=== PATIENT | female | born 1950 | race Caucasian/White ===

== ENCOUNTER → 2016-12-08 | Outpatient (CLI) | payer OTHER | LOC: FIMAGING 13:23 | PROVIDERS: ATTEND Internal Medicine Hematology & Oncology | DX: Z12.31 Encounter for screening mammogram for malignant neoplasm of breast (principal) | CPT/HCPCS: G0202 ==

== ENCOUNTER → 2017-08-03 | Outpatient (CLI) | payer OTHER | LOC: FIMAGING 08:20 | PROVIDERS: ATTEND Internal Medicine Hematology & Oncology | DX: N13.30 Unspecified hydronephrosis (principal); R93.5 Abnormal findings on diagnostic imaging of other abdominal regions, including retroperitoneum; C56.1 Malignant neoplasm of right ovary; C56.2 Malignant neoplasm of left ovary ==

== ENCOUNTER 2017-08-11 13:15 | Day surgery (SDC) | payer OTHER ==
[2017-08-11] MEDS ORDERED: NALOXONE HCL 0.4 MG/ML INJ IVP PRN (13:47)
[2017-08-11] MEDS ORDERED: MIDAZOLAM 2 MG/2 ML VIAL IVP PRN (13:47)
[2017-08-11] MEDS ORDERED: fentaNYL 100 MCG/2 ML INJ IVP PRN (13:47)
[2017-08-11] MEDS ORDERED: FLUMAZENIL 0.5 MG/5 ML MDV IVP PRN (13:47)
[2017-08-11] MEDS ORDERED: cefTRIAXone 1 GM in STERILE WATER INJ 10 ML IV ONE (13:47)
[2017-08-11] MEDS ORDERED: ALTEPLASE 2 MG VIAL IVP PRN (13:47)
[2017-08-11] MEDS ORDERED: GLUCAGON HCL 1 MG VIAL IVP PRN (13:47)
[2017-08-11] MEDS ORDERED: MEPERIDINE 25 MG/ML SYR IVP PRN (13:47)
[2017-08-11] MEDS ORDERED: PROTAMINE SULFATE 50 MG/5 ML VIAL IVP PRN (13:47)
[2017-08-11] MEDS ORDERED: HEPARIN 10,000 UNIT/10 ML MDV (1,000 UNIT/ML) IVP PRN (13:47)
[2017-08-11] MEDS ORDERED: NS 1,000 ML IV SCH (14:00)
[2017-08-11 14:07] VITALS: PULSE 60
--- NOTE | 2017-08-11 14:27 | PDPROPOC ---
Sedation Plan of Care ASA Classification: ASA 2 Planned drugs: fentanyl, midazolam Mallampati Score: Class 2 Mallampati Reference Image:
--- NOTE | 2017-08-11 14:29 | PDGENHP ---
History & Physical Chief Complaint: hydronephrosis History of Present Illness: distal obstruction of left ureter, unable to stent cystoscopically, severe hydro Relevant Physical Exam: nt/nd abdomen Cardiorespiratory Assessment: rrr, nl wob
[2017-08-11] MEDS ORDERED: fentaNYL 100 MCG/2 ML INJ ONE ×2 (15:51→16:06)
[2017-08-11] MEDS ORDERED: MIDAZOLAM 2 MG/2 ML VIAL ONE ×2 (15:51→16:06)
--- NOTE | 2017-08-11 16:27 | PDRADPN ---
Radiology Procedure Note Date of Procedure: 08/11/17 Radiologist: Grey Friend Anesthesia: IV Sedation Pre-op Diagnosis: obstructive left hydronephrosis Post-op Diagnosis: mid ureter obstruction, complete Indication: obstructed whit system Procedure: left PCN with placement of internal stent and pigtail nephrostomy Finding(s): severe hydro. obstruction at mid ureter. obstruction crossed with glidewire. internal 22cm x 8F NU stent placed. access maintained with 8F pigtail nephrostomy. Inf/Abcess present in the surg proc area at time of surgery?: No EBL: Minimal Complications: none Drains: Nephrostomy (8F)
[2017-08-11] MEDS ORDERED: oxyCODONE IR 5 MG TAB PO PRN (16:30)
[2017-08-11] MEDS ORDERED: ONDANSETRON 4 MG/2 ML VIAL IVP PRN (16:30)
[2017-08-11] MEDS ORDERED: ACETAMINOPHEN 325 MG TAB PO PRN (16:30)
[2017-08-11 17:59] VITALS: BP 153/77; RESP 14; TEMP 97.9
[2017-08-11 18:21] VITALS: O2SAT 99
== END 2017-08-11 18:20 | disposition home or self-care (01) ==
LOC: FIMAGING 13:15
PROVIDERS: ATTEND Specialist
DX: N13.0 Hydronephrosis with ureteropelvic junction obstruction (principal); C56.1 Malignant neoplasm of right ovary
CPT/HCPCS: 50695; 99152; 99153; C1729; C1769; C1894; J0696; J2250; J2310; J3010

== ENCOUNTER → 2017-08-15 | Day surgery (SDC) | payer OTHER ==
[~2017-08-15] MED LIST: IOPAMIDOL (ISOVUE-300) 100 ML BTL ONE
== END | disposition home or self-care (01) ==
LOC: FIMAGING 15:35
PROVIDERS: ATTEND Specialist
PROC: 0TP5X0Z Removal of Drainage Device from Kidney, External Approach (ICD-10-PCS; principal; 2017-08-15)
DX: Z46.6 Encounter for fitting and adjustment of urinary device (principal); N13.5 Crossing vessel and stricture of ureter without hydronephrosis; K59.00 Constipation, unspecified
CPT/HCPCS: Q9967

== ENCOUNTER 2017-08-16 22:05 | Inpatient (IN) | payer OTHER ==
--- NOTE | 2017-08-16 22:22 | EDPHY ---
H & P Stated Complaint: CONSTIPATED TOOK GOLYITLY NOW POOPING SELF Time Seen by Provider: 08/16/17 22:15 HPI/ROS: HPI CHIEF COMPLAINT: Abdominal pain, constipation HISTORY OF PRESENT ILLNESS: This patient is a 67-year-old female, she has a history of ovarian cancer followed by Dr. Gage. She has not had a bowel movement in 9 days. She decided to take a rather large amount of GoLYTELY today and now has abdominal pain diarrhea and abdominal spasms. She complained of severe abdominal cramping throughout her entire abdomen. She did have 1 episode of nausea with vomiting. She denies any chest pain or shortness of breath. Denies fever. Past Medical History: Ovarian cancer, constipation, hypertension Past Surgical History: Ureteral stents, Social History: Lives locally, daughter at bedside. Family History: Noncontributory ROS REVIEW OF SYSTEMS: A comprehensive 10 point review of systems is otherwise negative aside from elements mentioned in the history of present illness. Exam Constitutional appears uncomfortable, triage nursing summary reviewed, vital signs reviewed, awake/alert. Eyes normal conjunctivae and sclera, EOMI, PERRLA. HENT normal inspection, atraumatic, moist mucus membranes, no epistaxis, neck supple/ no meningismus, no raccoon eyes. Respiratory clear to auscultation bilaterally, normal breath sounds, no respiratory distress, no wheezing. Cardiovascular rate normal, regular rhythm, no murmur, no edema, distal pulses normal. Gastrointestinal mild tender palpation diffusely, no rebound, no guarding, normal bowel sounds, no distension, no pulsatile mass. Genitourinary no CVA tenderness. Musculoskeletal no midline vertebral tenderness, full range of motion, no calf swelling, no tenderness of extremities, no meningismus, good pulses, neurovascularly intact. Skin pink, warm, & dry, no rash, skin atraumatic. Neurologic awake, alert and oriented x 3, AAOx3, moves all 4 extremities equally, motor intact, sensory intact, CN II-XII intact, normal cerebellar, normal vision, normal speech. Psychiatric normal mood/affect. Heme/Lymph/Immune no lymphadenopathy. Differential diagnosis includes but is not limited to and in no particular order : Bowel obstruction, appendicitis, gallbladder disease, diverticulitis, colitis , enteritis, perforated viscus, gastritis, GERD, esophagitis, urinary tract infection, pyelonephritis, kidney stones Medical Decision Making: Plan for this patient IV establishment IV fluid bolus , IV fentanyl 50 mcg for pain control, IV Zofran 4 mg for nausea, basic blood work in KUB and re-evaluate. Re-evaluation: KUB reviewed shows large amount of stool. Ureteral stent. Place. Multiple air -fluid levels visualized. Given the multiple air-fluid levels will proceed with CT scan abdomen pelvis without contrast. Given air-fluid levels seen on x-ray will proceed with CT scan. CT scan without contrast given her creatinine is 1.9. 2339: CT scan abdomen pelvis without contrast called to me by Dr. hardy, no free air, no free fluid, no evidence of obstruction. There is a large pelvic mass. Adjacent to this is sigmoid colon and what is unable to be determined if the mass is confluent with the sigmoid colon. Additionally possible sigmoid diverticulitis versus colitis. Please see full dictation report. 2358: Re-examination at this time this patient is resting comfortably. Abdomen is soft at this time. She is not vomiting. Pain well controlled with IV Dilaudid. Blood work has been reviewed. CT scan has been reviewed. I have reviewed her CT scan findings with her I have offered her hospital admission for pain control and IV hydration she would prefer this. Source: Patient - Personal History Current Tetanus/Diphtheria Vaccine: Unsure Current Tetanus Diphtheria and Acellular Pertussis (TDAP): Unsure - Medical/Surgical History Hx Asthma: No Hx Chronic Respiratory Disease: No Hx Diabetes: No Hx Cardiac Disease: No Hx Renal Disease: No Hx Cirrhosis: No Hx Alcoholism: No Hx HIV/AIDS: No Hx Splenectomy or Spleen Trauma: No Other PMH: ovarian cancer, Chemo, HTN, KIDNEY STENTS WITH KIDNEY PROBLEMS - Social History Smoking Status: Former smoker Constitutional: Initial Vital Signs Temperature (C) 36.8 C 08/16/17 22:10 Heart Rate 97 08/16/17 22:10 Respiratory Rate 20 08/16/17 22:10 Blood Pressure 170/120 H 08/16/17 22:10 O2 Sat (%) 98 08/16/17 22:10 O2 Delivery Mode Room Air O2 (L/minute) 1 Allergies/Adverse Reactions: gabapentin Allergy (Intermediate, Verified 08/16/17 22:09) dizziness Home Medications: Medication Instructions Recorded Carisoprodol [Soma (*)] 350 mg PO BID PRN 12/05/14 LORazepam [Ativan (*)] 1 mg PO TID PRN 12/05/14 traZODone [traZODONE 100MG (*)] 100 mg PO HS 12/05/14 amLODIPine BESYLATE [Norvasc 10 mg 10 mg PO DAILY #60 tab 12/08/14 (*)] FLUoxetine [Prozac 20 MG (*)] 40 mg PO DAILY 10/30/15 Pantoprazole Sodium [Protonix 40mg 40 mg PO DAILY 10/30/15 (*)] Propranolol Sr [Inderal LA 60mg 60 mg PO HS 10/30/15 (*)] Levothyroxine [Synthroid 50 mcg 50 mcg PO DAILY06 #30 tab 11/06/15 (*)] clonIDINE [Catapres (*)] 0.1 mg PO BID #60 tab 11/06/15 HYDROcodone/APAP 10/325 [Arona 1 - 2 tab PO Q4-6PRN PRN 08/17/17 10/325 (*)] Medical Decision Making - Data Points Laboratory Results: Laboratory Results 08/17/17 04:15 08/17/17 04:15 Medications Given: Amlodipine Besylate (Norvasc) 10 mg PO DAILY [facility] Stop: 02/13/18 10:59 Last Admin: 08/18/17 08:11 Dose: 10 mg Carisoprodol (Soma) 350 mg PO BID PRN PRN Reason: Spasms Stop: 02/13/18 10:48 Last Admin: 08/18/17 13:50 Dose: 350 mg Clonidine (Catapres) 0.1 mg PO BID [facility] Stop: 02/13/18 10:59 Last Admin: 08/18/17 08:12 Dose: 0.1 mg Fentanyl (Duragesic) 12 mcg TD Q72H [facility] Stop: 08/27/17 14:29 Last Admin: 08/17/17 14:42 Dose: 12 mcg Fluoxetine HCl (Prozac) 40 mg PO DAILY [facility] Stop: 02/14/18 08:59 Last Admin: 08/18/17 08:11 Dose: 40 mg Gabapentin (Neurontin) 100 mg PO HS [facility] Stop: 02/14/18 20:59 Last Admin: 08/18/17 21:30 Dose: 100 mg Heparin Sodium (Porcine) (Heparin Sc Injection) 5,000 unit SC 0600,1400,2200 [facility] Stop: 02/13/18 13:59 Last Admin: 08/18/17 15:36 Dose: 5,000 unit Hydromorphone HCl (Dilaudid) 2 mg PO Q3H PRN PRN Reason: Pain, Severe Able to Take PO Stop: 08/28/17 11:28 Last Admin: 08/18/17 18:39 Dose: 2 mg Hydromorphone HCl (Dilaudid) 1 mg IVP Q4HRS PRN PRN Reason: Pain, Severe Able to Take PO Stop: 08/27/17 23:37 Last Admin: 08/18/17 19:36 Dose: 1 mg Sodium Chloride (Ns) 1,000 mls @ 100 mls/hr IV CONT [facility] Stop: 02/13/18 00:14 Last Admin: 08/18/17 03:54 Dose: 1,000 mls Levothyroxine Sodium (Synthroid) 50 mcg PO DAILY06 [facility] Stop: 02/13/18 10:50 Last Admin: 08/18/17 05:22 Dose: 50 mcg Lorazepam (Ativan) 0.5 mg PO Q6H PRN PRN Reason: Anxiety Stop: 02/13/18 10:48 Last Admin: 08/18/17 18:12 Dose: 0.5 mg Pantoprazole Sodium (Protonix) 40 mg PO DAILY [facility] Stop: 02/14/18 08:59 Last Admin: 08/18/17 08:12 Dose: 40 mg Polyethylene Glycol (Miralax) 17 gm PO DAILY [facility] Stop: 02/13/18 14:14 Last Admin: 08/18/17 08:12 Dose: 17 gm Propranolol HCl (Inderal La) 60 mg PO HS [facility] Stop: 02/13/18 20:59 Last Admin: 08/18/17 21:28 Dose: 60 mg Trazodone HCl (Trazodone) 100 mg PO HS [facility] Stop: 02/13/18 20:59 Last Admin: 08/17/17 22:18 Dose: Not Given Discontinued Medications Hydrocodone Bitart/Acetaminophen ([place]rona 5/325) 1 - 2 tab PO Q4HRS PRN PRN Reason: Pain, Moderate Able to Take PO Stop: 08/27/17 00:05 Last Admin: 08/17/17 23:11 Dose: 2 tab Clonidine (Catapres) 0.1 mg PO BID [facility] Stop: 02/13/18 02:59 Last Admin: 08/17/17 17:30 Dose: Not Given Fentanyl (Sublimaze) 50 mcg IVP EDNOW ONE Stop: 08/16/17 22:32 Last Admin: 08/16/17 22:34 Dose: 50 mcg Gabapentin (Neurontin) 100 mg PO TID [facility] Stop: 02/13/18 15:59 Last Admin: 08/18/17 08:12 Dose: Not Given Hydromorphone HCl (Dilaudid) 1 mg IVP EDNOW ONE Stop: 08/16/17 22:54 Last Admin: 08/17/17 00:14 Dose: 1 mg Hydromorphone HCl (Dilaudid) 0.5 - 1 mg IVP Q2HRS PRN PRN Reason: Pain, Severe Unable to Take PO Stop: 08/27/17 00:05 Last Admin: 08/17/17 19:48 Dose: 1 mg Hydromorphone HCl (Dilaudid) 1 - 2 mg IVP Q4HRS PRN PRN Reason: Pain, Severe Able to Take PO Stop: 08/27/17 23:37 Last Admin: 08/18/17 16:02 Dose: 2 mg Hydromorphone HCl (Dilaudid) 2 - 4 mg PO Q4HRS PRN PRN Reason: Pain, Severe Able to Take PO Stop: 08/28/17 00:09 Last Admin: 08/18/17 05:22 Dose: 4 mg Hydromorphone HCl (Dilaudid) 2 mg PO Q4HRS PRN PRN Reason: Pain, Severe Able to Take PO Stop: 08/28/17 00:09 Last Admin: 08/18/17 15:36 Dose: 2 mg Sodium Chloride (Ns) 1,000 mls @ 0 mls/hr IV EDNOW ONE; Wide Open PRN Reason: Protocol Stop: 08/16/17 22:32 Last Admin: 08/16/17 22:35 Dose: 1,000 mls Lorazepam (Ativan Injection) 0.5 - 1 mg IVP Q6HRS PRN PRN Reason: Anxiety, Unable to Take PO Stop: 02/13/18 00:05 Last Admin: 08/17/17 21:27 Dose: 1 mg Lorazepam (Ativan) 1 mg PO TID PRN PRN Reason: Anxiety Stop: 02/13/18 10:48 Last Admin: 08/18/17 13:43 Dose: 1 mg Ondansetron HCl (Zofran) 4 mg IVP EDNOW ONE Stop: 08/16/17 22:32 Last Admin: 08/16/17 22:37 Dose: 4 mg Propranolol HCl (Inderal) 60 mg PO HS [facility] Stop: 02/13/18 02:59 Last Admin: 08/17/17 03:00 Dose: 60 mg Departure - Departure Disposition: [facility] Inpatient Acute Clinical Impression: Abdominal pain Qualifiers: Abdominal location: generalized Qualified Code(s): R10.84 - Generalized abdominal pain Condition: Fair
[2017-08-16] MEDS ORDERED: ONDANSETRON 4 MG/2 ML VIAL IVP ONE (22:31)
[2017-08-16] MEDS ORDERED: fentaNYL 100 MCG/2 ML INJ IVP ONE (22:31)
[2017-08-16] MEDS ORDERED: NS 1,000 ML IV ONE (22:31)
[2017-08-16] MEDS ORDERED: fentaNYL 100 MCG/2 ML INJ ONE (22:32)
[2017-08-16 22:37] LABS: PLATELET COUNT 344 10^3/uL (150-400)
[2017-08-16] MEDS: HYDROmorphONE/DILAUDID 2 MG/ML INJ IVP ONE (22:57)
[2017-08-17] MEDS ORDERED: PROMETHAZINE HCL 25 MG/ML INJ IVP PRN (00:06)
[2017-08-17] MEDS ORDERED: ACETAMINOPHEN 325 MG TAB PO PRN (00:06)
[2017-08-17] MEDS ORDERED: ONDANSETRON 4 MG/2 ML VIAL IVP PRN (00:06)
[2017-08-17] MEDS ORDERED: HYDROmorphONE/DILAUDID 2 MG/ML INJ ONE (00:12)
[2017-08-17] MEDS: HYDROmorphONE/DILAUDID 2 MG/ML INJ IVP ONE (00:14)
[2017-08-17] MEDS: LORazepam 2 MG/ML INJ IVP PRN ×4 (00:26→21:27)
[2017-08-17] MEDS: HYDROCODONE/APAP 5/325 TAB PO PRN ×4 (01:44→23:11)
[2017-08-17] MEDS: NS 1,000 ML IV SCH (01:45)
--- NOTE | 2017-08-17 02:43 | PDGENHP ---
History and Physical - Chief Complaint Abdominal pain - History of Present Illness Source-patient able to provide history is a good historian. Her family is at bedside supplements details of history as well. EMR was reviewed and case discussed with ED provider. HPI - this is a pleasant 67-year-old unfortunate lady with the metastatic ovarian cancer who presents to the emergency department today with complaints of diffuse abdominal pain. Patient with a 9 day history of opiate induced constipation. She has been increasing her use of opiates due to her increasing abdominopelvic pain. Patient was instructed to take a bottle of GoLYTELY and reports that she drank large a quantity over a short period time. Patient subsequently developed increasing abdominal distention, bloating, cramping pain despite several bowel movements that have progressed to diarrhea. Patient denies any melena, hematochezia. Patient reports her abdominal pain is severe and diffuse, cramping quality. She also endorses 1 episode of nausea vomiting without any hematemesis. Patient denies any fevers, chills, chest pain, shortness of breath. Patient received initially a dose of fentanyl in the emergency department without any significant relief. She did receive a dose of Dilaudid which helped somewhat with her symptoms. Patient has also been complaining of increasing anxiety due to increasing pain. Patient's primary oncologist is Dr. Gage. Patient is not currently undergoing chemotherapy and unclear if patient had previously had discussions regarding transition to hospice based care. At this time patient desires to remain a full code. History Information - Allergies/Home Medication List Allergies/Adverse Reactions: gabapentin Allergy (Intermediate, Verified 08/16/17 22:09) dizziness Home Medications: Carisoprodol [Soma (*)] 350 mg PO BID PRN 12/05/14 [Last Taken 08/10/17] LORazepam [Ativan (*)] 1 mg PO TID PRN 12/05/14 [Last Taken 08/10/17] traZODone [traZODONE 100MG (*)] 100 mg PO HS 12/05/14 [Last Taken 08/10/17] FLUoxetine [Prozac 20 MG (*)] 40 mg PO BID 10/30/15 [Last Taken 08/10/17] Herbals/Supplements -Info Only 1 each PO DAILY 10/30/15 [Last Taken 08/10/17] Pantoprazole Sodium [Protonix 40mg (*)] 40 mg PO DAILY 10/30/15 [Last Taken ] Propranolol Sr [Inderal LA 60mg (*)] 60 mg PO HS 10/30/15 [Last Taken 08/10/17] I have personally reviewed and updated: family history, medical history, social history, surgical history Past Medical History: Ovarian cancer, chronic pain, depression, anxiety, constipation, HTN, hypothyroidism, insomnia - Surgical History Additional surgical history: Bilateral ureteral stents, appy, port placement, partial hysterectomy, bladder sling - Family History Additional family history: Father with history of CHF, mother with history of lupus. Brother with history of trigeminal neuralgia. Daughters healthy. - Social History Smoking Status: Former smoker Tobacco Use: Cigarettes Alcohol Use: None Drug Use: Marijuana (CBD oil) Review of Systems Review of Systems: ROS: 10pt was reviewed & negative except for what was stated in HPI & below Gastrointestinal: Reports: vomitting, abdominal pain, abdominal distention ( Improved after BM), constipation, diarrhea (Status post GoLYTELY), nausea. Denies: black stools Genitourinary: Denies: dysuria, hematuria Muscolosketal: Reports: other (Abdominal pain as above) Skin: Reports: no symptoms, change in color, lesions (Multiple lesions to upper lower extremities related to patient's cancer) Physical Exam Physical Exam: Selected Entries 08/16/17 22:10 Blood Pressure Automatic Method Heart Rate 97 Respiratory 20 Rate O2 Sat (%) 98 Temperature (C) 36.8 C Blood Pressure 170/120 H Mean Arterial 136 H Pressure (MAP) O2 Delivery Room Air Mode Temperature Oral Source Temp Pulse Resp BP Pulse Ox 37.1 C 75 12 168/102 H 99 08/17/17 01:34 08/17/17 01:34 08/17/17 01:34 08/17/17 01:34 08/17/17 01:34 O2 (L/minute) 1 Constitutional: chronically ill appearing, uncomfortable, other (Patient in moderate distress secondary to complaints of pain. She does writhe around occasionally in the bed. Patient's mood is slightly labile between normal and depressed affects.) Eyes: PERRL (Decreased reactivity light bilaterally but symmetric.), anicteric sclera, EOMI, scleral injection (Minimal injection. Patient is tearful.) Ears, Nose, Mouth, Throat: no oral mucosal ulcers, dry mucous membranes, No poor dentition Cardiovascular: regular rate and rhythym, no murmur, rub, or gallop, tachycardia , edema (Trace bilateral lower extremity) Peripheral Pulses: 1+: dorsalis-pedis (R), dorsalis-pedis (L) Respiratory: no respiratory distress, no rales or rhonchi, clear to auscultation , No reduced air movement Gastrointestinal: tenderness (Diffuse abdominal tenderness to palpation.), distension (Mildly distended but soft), other (Bowel sounds present.), No ascites, No key's sign, No guarding, No rebound Genitourinary: no bladder tenderness, gentile in urethra Skin: warm, normal color, other (Patient with scabbed lesions to her upper and lower extremities. Right elbow with a 3 cm scabbed lesion with some minimal surrounding erythema but no induration.) Musculoskeletal: full muscle strength, No pain with ROM Neurologic: AAOx3, CN II-XII Intact (Grossly normal.), No weakness, No facial droop Psychiatric: not encephalopathic, thought process linear, anxious, depressed ( Intermittently tearful), No poor insight, No poor judgement, No poor memory Lab Data & Imaging Review 08/16/17 22:30 08/16/17 22:30 WBC 12.56 10^3/uL (3.80-9.50) H 08/16/17 22:30 RBC 3.10 10^6/uL (4.18-5.33) L 08/16/17 22:30 Hgb 9.9 g/dL (12.6-16.3) L 08/16/17 22:30 Hct 30.1 % (38.0-47.0) L 08/16/17 22:30 MCV 97.1 fL (81.5-99.8) 08/16/17 22:30 MCH 31.9 pg (27.9-34.1) 08/16/17 22:30 MCHC 32.9 g/dL (32.4-36.7) 08/16/17 22:30 RDW 15.6 % (11.5-15.2) H 08/16/17 22:30 Plt Count 344 10^3/uL (150-400) 08/16/17 22:30 MPV 9.0 fL (8.7-11.7) 08/16/17 22:30 Neut % (Auto) 78.4 % (39.3-74.2) H 08/16/17 22:30 Lymph % (Auto) 11.7 % (15.0-45.0) L 08/16/17 22:30 [place] % (Auto) 8.0 % (4.5-13.0) 08/16/17 22:30 Eos % (Auto) 1.0 % (0.6-7.6) 08/16/17 22:30 Baso % (Auto) 0.3 % (0.3-1.7) 08/16/17:30 Nucleat RBC Rel Count 0.0 % (0.0-0.2) 08/16/17 22:30 Absolute Neuts (auto) 9.86 10^3/uL (1.70-6.50) H 08/16/17 22:30 Absolute Lymphs (auto) 1.47 10^3/uL (1.00-3.00) 08/16/17 22:30 Absolute Monos (auto) 1.00 10^3/uL (0.30-0.80) H 08/16/17 22:30 Absolute Eos (auto) 0.12 10^3/uL (0.03-0.40) 08/16/17 22:30 Absolute Basos (auto) 0.04 10^3/uL (0.02-0.10) 08/16/17 22:30 Absolute Nucleated RBC 0.00 10^3/uL (0-0.01) 08/16/17 22:30 Immature Gran % 0.6 % (0.0-1.1) 08/16/17 22:30 Immature Gran # 0.07 10^3/uL (0.00-0.10) 08/16/17 22:30 Sodium 137 mEq/L (135-145) 08/16/17 22:30 Potassium 4.9 mEq/L (3.5-5.2) 08/16/17 22:30 Chloride 104 mEq/L (97-110) 08/16/17 22:30 Carbon Dioxide 14 mEq/l (22-31) L 08/16/17 22:30 Anion Gap 19 mEq/L (8-16) H 08/16/17 22:30 BUN 38 mg/dL (7-23) H 08/16/17 22:30 Creatinine 1.9 mg/dL (0.6-1.0) H 08/16/17 22:30 Estimated GFR 26 08/16/17 22:30 Glucose 134 mg/dL (70-100) H 08/16/17 22:30 Calcium 9.6 mg/dL (8.5-10.4) 08/16/17 22:30 Total Bilirubin 0.5 mg/dL (0.1-1.4) 08/16/17 22:30 Conjugated Bilirubin 0.4 mg/dL (0.0-0.5) 08/16/17 22:30 Unconjugated Bilirubin 0.1 mg/dL (0.0-1.1) 08/16/17 22:30 AST 30 IU/L (14-46) 08/16/17 22:30 ALT 18 IU/L (9-52) 08/16/17:30 Alkaline Phosphatase 115 IU/L (38-126) 08/16/17 22:30 Total Protein 9.2 g/dL (6.3-8.2) H 08/16/17 22:30 Albumin 4.0 g/dL (3.5-5.0) 08/16/17 22:30 Lipase 84 IU/L (23-300) 08/16/17 22:30 Imaging Review: Abdomen single view Indication: Abdominal pain. Comparison: Nephrostogram dated August 15, 2017 Findings: The bilateral internalized ureteral stents, with pigtails overlying the renal pelvis and urinary bladder, are both unchanged in good position. The lung bases are clear. Bowel gas pattern within normal limit. No dilated loops of small or large bowel. No mass effect. Bones are within normal limit. Impression: 1. Well-positioned bilateral internalized ureteral stents. 2. Bowel gas pattern within normal limit. No significant constipation. CT Abdomen and Pelvis Without Contrast Indication: Abdominal pain. History of metastatic ovarian cancer. Recent left- sided percutaneous nephrostomy. Patient ingested GoLYTELY. Technique: Multidetector helical CT imaging was performed from the kidneys to the urinary bladder without contrast. Dose reduction techniques were utilized. Comparison: CT the abdomen pelvis without contrast from [facility] CCT by Ivor dated April 18, 2017. Findings: Low-attenuation masses, at least 7, throughout the right and left lobe of the liver have increased in size since March 2017. The largest in the dome measures 7 x 6 cm on image 33 of series 4 ( previously 3.7 x 3.1 cm). A second reference lesion in the caudal right lobe measures 4 x 4 cm on image #77 of series 4 (previously 2.0 x 1.8 cm). Several of the peritoneal implants and enlarged lymph nodes throughout the retroperitoneum and inguinal distribution have increased in size. A traffic representative mesenteric implant in the right midabdomen on image 147 of series 4 measures 3.7 x 2.7 cm (previously 2.6 x 2.1 cm). Irregular nodular thickening of the umbilicus may represent a small implant. The large solid and cystic mass in the central pelvis, compressing and distorting the urinary bladder and loops of bowel, now measures 12 x 11 cm image 2-0 series 4 ( previously 11 x 9 cm). A 10 cm segment of the sigmoid colon, directly contiguous and inseparable from the pelvic mass has concentric wall thickening, numerous adjacent peritoneal implants, adjacent mesenteric edema, and numerous diverticula (best demonstrated on images 180 through 211 of series 4 the axial imaging and images 34 through 58 of the coronal reconstruction). The upstream bowel has increased intraluminal fluid throughout the small large bowel without pathologic bowel dilatation. The low rectum has irregular wall thickening and numerous implants in the mesorectal fat adjacent the pelvic mass. No pneumoperitoneum, free fluid, or abscess. The newly placed left internalized ureteral stent is well-positioned with the upstream pigtail in the left intrarenal collecting system and the downstream tip in the decompressed /compressed urinary bladder. No perinephric hematoma or fluid collection. The right ureteral stent is well-positioned. The atrophic right kidney and markedly dilated right intrarenal collecting system is similar to March 2017. A tiny gas bubble is present within the right intrarenal collecting system on image 134 of series 4. The spleen, pancreas, gallbladder, and adrenal glands are normal. The abdominal aorta is normal caliber mild calcified plaque. No pulmonary nodules in the lower lung zones. No pericardial or pleural effusion. No lytic or blastic bone lesions. No compression fracture. Severe degenerative disk disease at L5-S1 is unchanged. Impression: 1. Low-grade sigmoid diverticulitis versus inflammation secondary to tumoral invasion of sigmoid colon by large pelvic mass. 2. Fluid-filled dysmotile bowel pattern may be secondary to GoLYTELY ingestion. No dilated bowel or transition to suggest acute bowel obstruction. If the sigmoid is infiltrated with neoplasm, this may be an impending site for mechanical obstruction 3. No abscess, free fluid, or evidence of bowel perforation. 4. Progression of metastatic disease evidenced by increasing in size liver metastasis, mesenteric implants, and central pelvic mass. 5. New well-positioned left ureteral stent nicely decompressing and the left upper urinary tract. No perinephric hematoma. 6. Chronic partial obstruction and atrophy of the right kidney despite good positioning of right ureteral stent. Tiny gas bubble in the right intrarenal collecting system may be due to manipulation of the stent. Please correlate with procedural history and urinary analysis. Findings discussed with Emergency Department physician, Zelalem Gonzalez MD at 08/16/2017 11:45. Visualized and Interpreted imaging results: Yes Assessment & Plan Assessment: #Abdominal pain (Acute) - likely exacerbated with high volume of GoLYTELY intake recently. Patient has been having bowel movements. CT without any evidence of obstruction at this time. She does have evidence of sigmoid wall thickening which is less likely as to be a diverticulitis or colitis rather encroachment of her cancer. Patient appears to respond well to Dilaudid which will continue. Ativan will be available p.r.n. For her anxiety but also for spasm type pain. Will hold off on consideration for a [employer] pump at this time is patient bolus dosing appears to be sufficient for pain control. #Opiate induced constipation - currently relieved status post GoLYTELY. Continue with appropriate bowel regimen. Try to decrease opiate use as tolerated. Sigmoid wall thickening - diverticulitis versus encroachment of cancer. Patient is currently afebrile and this does not likely represent an infectious process. Holding antibiotics at this time. #Stage IV metastatic ovarian cancer - a.m. Consult with Oncology to visit with the patient. She is not currently undergoing chemotherapy and with new Arnold identified mets to the liver overall prognosis is poor. At time of my interview patient was with significant anxiety and tearfulness. She is also complaining of severe pain. Will try to get her symptoms under better control and have a further discussion with her and her family regarding consideration for hospice care. This was discussed with patient's brother who agrees that currently patient would benefit from improved control of her pain and anxiety before further discussions regarding new findings of CT scan. #Leukocytosis-likely reactive in setting of acute abdominal pain, nausea vomiting. Patient will receive IV fluid hydration and repeat a CBC in the a.m.. She is afebrile and not currently on chemotherapy. #Anemia-likely of chronic disease. Patient without any evidence of active bleeding. Will monitor H&H. Acute kidney insufficiency-creatinine currently improved from her most recent outpatient lab just a few days ago. Continue with IV fluid supplementation overnight. Encourage oral intake as tolerated. Chronic medical issues #Hypothyroidism - resume levothyroxine replacement 1 med rec available. #Insomnia - patient with Ativan p.r.n. #Depression - supportive care in reassurance. #Anxiety - Ativan p.r.n. #Benign essential hypertension - blood pressures increased but patient is complaining of significant pain and anxiety. Plan to resume patient's Catapres and propranolol. #Chronic pain - patient with Dilaudid and Ativan available p.r.n. For pain. One med rec available in patient's symptoms have improved consider transition to oral treatment. Will need to improve patient's bowel regimen to avoid long- term constipation. FEN - IV fluid overnight for replacement. Patient does appear dehydrated. Electrolyte monitoring and replacement if needed. Advance diet as tolerated. PPX-SCDs holding anticoagulation at this time. Cor-is full currently. Disposition-patient will be admitted observation status on the medical floor at this time. Will try to improve patient's pain control and request Oncology in the a.m. To discuss further with the patient her options. When I discussed the code status with the patient however she does report she has not yet ready to as she has a 19-year-old and also multiple young grandchildren.
[2017-08-17] MEDS ORDERED: PROPRANOLOL HCL 40 MG TAB PO SCH (03:00)
[2017-08-17 05:52] LABS: PLATELET COUNT 273 10^3/uL (150-400)
--- NOTE | 2017-08-17 11:04 | HOSPPROG ---
Hospitalist Progress Note Assessment/Plan: #Acute on chronic abdominal pain: due to constipation, advanced cancer -having BMs. No obstruction on imaging -start Fentanyl patch 12.5mcg daily with chronic pain -cont Soma. Trial low-dose gabapentin as likely complex-pain syndrome with mets #Metastatic ovarian cancer -not on chemo. Enlarged liver masses, mesenteric implants -agrees to Palliative Care consult #Leukocytosis: resolved. No abscess seen on CT. Afebrile #Depression: Prozac #Hypothyroidism: LT4 #Anxiety: PRN ativan #Diet: as tolerated #DVT ppx: SQH #Disp: requires inpatient admission for uncontrolled pain, IV opioids Objective: Vital Signs Temp Pulse Resp BP Pulse Ox 37.1 C 66 16 173/96 H 96 08/17/17 08:50 08/17/17 08:50 08/17/17 08:50 08/17/17 08:50 08/17/17 08:50 Laboratory Results 08/17/17 04:15 08/17/17 04:15 08/16/17 08/17/17 08/18/17 05:59 05:59 05:59 Intake Total 1200 358 Balance 1200 358 - Physical Exam Constitutional: no apparent distress, uncomfortable Eyes: PERRL Ears, Nose, Mouth, Throat: moist mucous membranes Cardiovascular: regular rate and rhythym, no murmur, rub, or gallop Respiratory: no respiratory distress Gastrointestinal: normoactive bowel sounds, tenderness Genitourinary: no bladder fullness Skin: warm Musculoskeletal: full muscle strength Neurologic: AAOx3, CN II-XII Intact Psychiatric: anxious, agitated ICD10 Worksheet Patient Problems: Problems Problem Status Onset Abdominal pain Acute Ovarian cancer Acute
[2017-08-17] MEDS: HYDROmorphONE/DILAUDID 2 MG/ML INJ IVP PRN ×3 (11:09→19:48)
[2017-08-17] MEDS ORDERED: fentaNYL 12 MCG PATCH TD SCH (14:30)
--- NOTE | 2017-08-17 14:36 | ASMTCMCOM ---
CM Note CM Note Notes: Dr Ricks met with pt who has advancing ovarian ca. Pt agreed to an in-house palliative consult. Dr Ricks will put in order. Alerted pall team. Pt's DC needs are TBD. Date Signed: 08/17/2017 02:35 PM Electronically Signed By:Jalyn Rain LCSW
[2017-08-17] MEDS: HEPARIN 5,000 UNIT/0.5 ML SYR SC SCH ×2 (14:55→21:27)
[2017-08-17] MEDS: POLYETHYLENE GLYCOL 3350 17 GM PKT PO SCH (14:58)
[2017-08-17] MEDS: LEVOTHYROXINE 50 MCG TAB PO SCH (15:04)
[2017-08-17] MEDS: GABAPENTIN 100 MG CAP PO SCH ×2 (15:04→21:27)
[2017-08-17] MEDS: LORazepam 1 MG TAB PO PRN (16:48)
--- NOTE | 2017-08-17 17:58 | GCON ---
[f rep st] CONSULTATION ONCOLOGY INITIAL VISIT REASON FOR CONSULTATION: Evaluation and management of ovarian cancer. PRIMARY ONCOLOGIST: Dr. Hayes Gage. HISTORY OF PRESENT ILLNESS: The patient is a 67-year-old woman who was initially diagnosed in November 27 with stage IV ovarian cancer with lymph node involvement outside of the peritoneum into the infra clavicular and mediastinal regions. She underwent primary debulking, then carboplatin and paclitaxel for 6 cycles. In 2014, she was placed on Doxil plus bevacizumab and was on that through most of 2014. Then in the second of 2015, she was on gemcitabine, and then towards the end of the third qu arter into the 2016, she was on Abraxane, and in the middle of last year, she was on c arboplatin. More recently, she had been on capecitabine, but having some complications and I think pr ogression. She has been in the office multiple times over the last month, both with following up bila teral hydronephrosis. She recently had bilateral stents placed by Dr. Bhatia. She has also been in dis cussion with Dr. Gage to consider whether or not to go on another line of therapy or just go on ho spice care. She was admitted to the hospital last night. She was having problems with constipation at home, and s he took some GoLYTELY to help clear herself out, but she developed a lot of diffuse abdominal pain, b loating and distention. Her pain was excruciating, so she came to the ER. There was no sign of obstru ction, and she started passing stool, which helped alleviate the pain, as well as some IV fentanyl in the ER department. She was not having any other symptoms at the time. She was doing better this morn ing and ate some breakfast at about 10:00. She now was trying to eat some lunch, but having excruciat ing pain in her low pelvis. She feels like it is a cramping pain again with radiation down through he r rectum, into her anus. She feels like she has to have a bowel movement. She is very anxious and ups et and quite tearful about both the pain and also her current situation overall. She also keeps askin g for darbepoetin because she is anemic. ALLERGIES: She is allergic to gabapentin. HOME MEDICATIONS: Include fluoxetine, Soma, lorazepam, hydrocodone 10/325 with acetaminophen, trazod one, clonidine, amlodipine, propranolol, pantoprazole, and levothyroxine. PAST MEDICAL HISTORY: Chronic illnesses include ovarian cancer, as described above; chronic pain; de pression with anxiety; chronic constipation, probably due to pain medications and cancer; hypertensio n; hypothyroidism; and insomnia. PAST SURGICAL HISTORY: Includes bilateral ureteral stents and debulking. She also had an appendectom y, port placement, and bladder sling. FAMILY HISTORY: No history of cancer. SOCIAL HISTORY: Previous smoker. Does not use alcohol but does use CBD oil. REVIEW OF SYSTEMS: Ten-point review of systems was performed. Pertinent positives as per HPI, otherw ise negative. PHYSICAL EXAMINATION: VITAL SIGNS: Temperature is 37.1, pulse 66, blood pressure 173/96. GENERAL: Farida claire is very upset, although I was able to get a history out of her and help her calm down. HEENT: Unrem arkable. LUNGS: Clear. CARDIAC: Regular. ABDOMEN: Mildly distended. She has a firmness in the left si de of her abdomen and is mildly tender. NEUROLOGICAL: Grossly intact. LABS: Hemoglobin was 9.9 on arrival. Now it is down to 8.3. White count is 9700. Platelet count is n ormal. Her BUN and creatinine are down to 35 and 1.9. I believe her creatinine was up to as high as 2.7 before having the stents placed. Other electrolytes and LFTs unremarkable. CT scan, which I revie wed, showed low-grade sigmoid diverticulitis versus inflammation secondary to tumor invasion by a lar ge pelvic mass. The segment of sigmoid is directly contiguous and inseparable from the pelvic mass an d has a concentric wall thickening and numerous adjacent peritoneal implants, edema and diverticula. The low rectum also has irregular wall thickening and numerous implants. Her liver lesions have also increased in size since last CT scan. IMPRESSION: 1. Acute abdominal pain with intermittent constipation. 2. Current ovarian cancer. 3. History of depression, anxiety. I suspect a lot of the pain is related to the cancer and exacerbated by perhaps the constipation and cramping with moving her bowels. Difficult situation because increased narcotics would probably cause more constipation and make it more difficult to pass her stools, but I am not sure there is an easy fix for the pain. She is allergic to gabapentin, and she is already on Prozac, so adding duloxetine w ould be difficult. Not sure if she has tried Lyrica. The area is diffuse enough that radiation would probably not be helpful. If she became obstructed or the pain got severe enough, could consider a div erting colostomy, but that is fairly extreme. She has been in long discussions with Dr. Gage regarding her cancer and odds of responding to the next therapy, which is probably somewhere between 10% and 20% at best and would be short lived. They would also have a lot of side effects. Hospice has been recommended to her as well, but she has been reluctant to make a final decision. For now, I would recommend we focus on trying to get her a little more comfortable, see if there are some other treatments that might be beneficial for her. Follow davin bills with her while she is in the hospital. /[id number]/MODL
[2017-08-17] MEDS: PROPRANOLOL SR 60 MG CAP PO SCH (21:27)
[2017-08-17] MEDS: traZODone 100 MG TAB PO SCH (22:18)
[2017-08-17] MEDS ORDERED: HYDROmorphONE/DILAUDID 2 MG/ML INJ IVP PRN (23:38)
[2017-08-18] MEDS: HYDROmorphONE/DILAUDID 2 MG TAB PO PRN ×6 (01:07→21:35)
[2017-08-18] MEDS: LORazepam 1 MG TAB PO PRN ×3 (01:16→13:43)
[2017-08-18] MEDS: NS 1,000 ML IV SCH (03:54)
[2017-08-18] MEDS: LEVOTHYROXINE 50 MCG TAB PO SCH (05:22)
[2017-08-18] MEDS: HEPARIN 5,000 UNIT/0.5 ML SYR SC SCH ×3 (05:23→21:32)
[2017-08-18] MEDS: FLUoxetine 20 MG CAP PO SCH (08:11)
[2017-08-18] MEDS: PANTOPRAZOLE SODIUM 40 MG TAB PO SCH (08:12)
[2017-08-18] MEDS: GABAPENTIN 100 MG CAP PO SCH ×2 (08:12→21:30)
[2017-08-18] MEDS: POLYETHYLENE GLYCOL 3350 17 GM PKT PO SCH (08:12)
[2017-08-18] MEDS: CARISOPRODOL 350 MG TAB PO PRN ×3 (08:20→22:41)
--- NOTE | 2017-08-18 08:52 | HOSPPROG ---
Hospitalist Progress Note Assessment/Plan: #Acute on chronic abdominal pain: due to constipation, advancing cancer -having BMs. No obstruction on imaging -start Fentanyl patch 12.5mcg daily with chronic pain; readjust at 72 hours -She has been declining IV opioids, but encouraged her to use to get through acute pain crisis -cont Soma. Trial low-dose gabapentin as likely complex-pain syndrome with mets. Pulse ox -anxiety playing a role. Cont home Ativan #Metastatic ovarian cancer -not on chemo. Enlarged liver masses, mesenteric implants -agrees to Hospice evaluation #Leukocytosis: resolved. No abscess seen on CT. Afebrile\\ #Constipation: aggressive bowel regimen #Depression: Prozac #Hypothyroidism: LT4 #Anxiety: PRN ativan #Diet: as tolerated #DVT ppx: SQH #Disp: requires inpatient admission for uncontrolled pain, IV opioids Time spent on visit: 60 min with pt and friend discussing pain management, hospice care Subjective: "I am dying" c/o 8/10 abdominal pain. Had BM last night Objective: Vital Signs Temp Pulse Resp BP Pulse Ox 36.8 C 80 18 134/86 H 98 08/18/17 07:51 08/18/17 07:51 08/18/17 07:51 08/18/17 07:51 08/18/17 07:51 Laboratory Results 08/17/17 04:15 08/17/17 04:15 08/17/17 08/18/17 08/19/17 05:59 05:59 05:59 Intake Total 1200 2750 Output Total 25 300 Balance 1200 2725 -300 - Physical Exam Constitutional: other (tearful, anxious) Eyes: PERRL (pupils small, reactive) Cardiovascular: regular rate and rhythym Respiratory: no respiratory distress Gastrointestinal: normoactive bowel sounds, tenderness Psychiatric: interacting appropriately, anxious ICD10 Worksheet Patient Problems: Problems Problem Status Onset Abdominal pain Acute Ovarian cancer Acute
--- NOTE | 2017-08-18 11:13 | PDMN ---
Medical Necessity Medical necessity: M05 abd pain undg: acute on chronic abd pain due to constipation/ Ca, pt with current met. ovarian Ca., anticipate > 2 midnights ongoing med nec care, monitoring and tx.
[2017-08-18] MEDS ORDERED: POLYETHYLENE GLYCOL 3350 17 GM PKT PO PRN (11:28)
[2017-08-18] MEDS ORDERED: BISACODYL 10 MG SUPP PR PRN (11:28)
[2017-08-18] MEDS ORDERED: MAGNESIUM HYDROXIDE 30 ML UDCUP PO PRN (11:28)
--- NOTE | 2017-08-18 11:51 | SOAPPROG ---
SOAP Progress Note Assessment/Plan: E&M for ovarian cancer * Recurrent Ovarian cancer: further therapy options are less likely to work. She has been talking with Dr. Gage about trying topotecan or etoposide vs. hospice. Not curable. * Acute on chronic abdominal pain: due to advancing cancer; diarrhea slowing down. Continue miralax to prevent constipation. Tried gabapentin low dose to see if can help but she is reluctant to take. * Disposition: Recommend palliative care consult before going home; continue pain management Subjective: Not as uncomfortable as yesterday but still with some cramping. Less diarrhea. Tried davida once with trouble but scared to take more. Objective: Vital Signs Temp Pulse Resp BP Pulse Ox 36.8 C 71 18 134/77 H 95 08/18/17 11:04 08/18/17 11:04 08/18/17 11:04 08/18/17 11:04 08/18/17 11:04 08/17/17 08/18/17 08/19/17 05:59 05:59 05:59 Intake Total 1292 Output Total 25 300 Balance 1267 -300 Physical Exam - Physical Exam General Appearance: no apparent distress Respiratory: lungs clear Abdomen: normal bowel sounds, soft, No non-tender ICD10 Worksheet Patient Problems: Problems Problem Status Onset Abdominal pain Acute Ovarian cancer Acute
--- NOTE | 2017-08-18 15:37 | ASMTCMCOM ---
CM Note CM Note Notes: Pt had palliative consult today and decision made to meet with [facility] tomorrow for possible admission to care center. [facility] is set up for 10 AM. Referral faxed to [facility]. CM will continue to follow. Date Signed: 08/18/2017 03:36 PM Electronically Signed By:Jalyn Rain LCSW
[2017-08-18] MEDS: LORazepam 0.5 MG TAB PO PRN (18:12)
[2017-08-18] MEDS: HYDROmorphONE/DILAUDID 2 MG/ML INJ IVP PRN (19:36)
[2017-08-18] MEDS ORDERED: SENNOSIDES 1 TAB PO SCH (21:00)
[2017-08-18] MEDS: PROPRANOLOL SR 60 MG CAP PO SCH (21:28)
[2017-08-18] MEDS: SENNOSIDES/DOCUSATE SODIUM TAB PO SCH (21:30)
[2017-08-18] MEDS: traZODone 100 MG TAB PO SCH (21:31)
[2017-08-18] MEDS: LACTULOSE 20 GM/30 ML UDCUP PO PRN (21:32)
[2017-08-19] MEDS: LORazepam 0.5 MG TAB PO PRN ×3 (00:14→09:02)
[2017-08-19] MEDS: HYDROmorphONE/DILAUDID 2 MG TAB PO PRN ×7 (00:14→21:02)
[2017-08-19] MEDS: HYDROmorphONE/DILAUDID 2 MG/ML INJ IVP PRN ×5 (00:15→22:35)
[2017-08-19] MEDS: NS 1,000 ML IV SCH ×2 (03:06→17:14)
[2017-08-19] MEDS: LEVOTHYROXINE 50 MCG TAB PO SCH (06:01)
[2017-08-19] MEDS: HEPARIN 5,000 UNIT/0.5 ML SYR SC SCH ×3 (06:02→21:05)
[2017-08-19] MEDS: SENNOSIDES/DOCUSATE SODIUM TAB PO SCH ×2 (09:01→21:15)
[2017-08-19] MEDS: POLYETHYLENE GLYCOL 3350 17 GM PKT PO SCH (09:01)
[2017-08-19] MEDS: PANTOPRAZOLE SODIUM 40 MG TAB PO SCH (09:02)
[2017-08-19] MEDS: FLUoxetine 20 MG CAP PO SCH (09:02)
[2017-08-19] MEDS ORDERED: HYDROmorphONE/DILAUDID 2 MG TAB PO PRN (09:56)
[2017-08-19] MEDS ORDERED: fentaNYL 12 MCG PATCH TD SCH (10:00)
[2017-08-19] MEDS ORDERED: HYDROmorphONE/DILAUDID 2 MG TAB PO ONE (10:30)
[2017-08-19] MEDS: fentaNYL 25 MCG PATCH TD SCH (10:33)
--- NOTE | 2017-08-19 12:46 | SOAPPROG ---
SOAP Progress Note Assessment/Plan: Assessment: 1. Ovarian cancer, recurrent after multiple lines of therapy 2. abd pain - cancer vs consipation. constipation has resolved. Plan: - continue current pain meds - bowel regimen PRN - pt had decided yesterday to go to inpatient hospice but now apparently family would like her to go home and meet w/ hospice as outpatient. d/w nursing staff 08/19/17 12:44 Subjective: pt resting comfortably. Objective: exam: Gen NAD lungs CTAB CV RRR no mGR abd: +BS. mod distension. nontender Ext 1+ edema Vital Signs Temp Pulse Resp BP Pulse Ox 37.1 C 74 18 192/99 H 95 08/19/17 08:43 08/19/17 08:43 08/19/17 08:43 08/19/17 09:03 08/19/17 08:43 08/18/17 08/19/17 08/20/17 05:59 05:59 05:59 Intake Total 1292 2301 Output Total 25 900 Balance 1267 1401 ICD10 Worksheet Patient Problems: Problems Problem Status Onset Abdominal pain Acute Ovarian cancer Acute
--- NOTE | 2017-08-19 13:18 | HOSPPROG ---
Hospitalist Progress Note Assessment/Plan: #Acute on chronic abdominal pain: due to constipation, advancing cancer -having BMs. No obstruction on imaging -increase Fentanyl patch to 25mcg, dilaudid for breakthrough. Anxiety playing large role, cont home Ativan #Metastatic ovarian cancer -not on chemo. Enlarged liver masses, mesenteric implants -plan for Hospice evaluation outpatient #Leukocytosis: resolved. No abscess seen on CT. Afebrile #Constipation: having BMs #Depression: Prozac #Hypothyroidism: LT4 #Anxiety: PRN ativan #Diet: as tolerated #DVT ppx: SQH #Disp: requires inpatient admission for uncontrolled pain. Hope to DC tomorrow if pain controlled Subjective: had BMs last night. 01/05 lower abd pain now Objective: Vital Signs Temp Pulse Resp BP Pulse Ox 37.1 C 74 18 192/99 H 95 08/19/17 08:43 08/19/17 08:43 08/19/17 08:43 08/19/17 09:03 08/19/17 08:43 08/18/17 08/19/17 08/20/17 05:59 05:59 05:59 Intake Total 1292 2301 Output Total 25 900 Balance 1267 1401 - Physical Exam Constitutional: uncomfortable Eyes: PERRL Ears, Nose, Mouth, Throat: moist mucous membranes Cardiovascular: regular rate and rhythym Respiratory: no respiratory distress, no rales or rhonchi Gastrointestinal: normoactive bowel sounds, tenderness (BL lower quadrants) Genitourinary: no bladder fullness Skin: warm Musculoskeletal: full muscle strength Neurologic: AAOx3, CN II-XII Intact Psychiatric: anxious, depressed, other (tearful) ICD10 Worksheet Patient Problems: Problems Problem Status Onset Abdominal pain Acute Ovarian cancer Acute
[2017-08-19] MEDS: CARISOPRODOL 350 MG TAB PO PRN ×2 (13:34→21:04)
[2017-08-19] MEDS: LACTULOSE 20 GM/30 ML UDCUP PO PRN ×2 (13:34→13:36)
[2017-08-19] MEDS: LORazepam 1 MG TAB PO PRN ×2 (15:34→21:05)
--- NOTE | 2017-08-19 16:02 | ASMTCMCOM ---
CM Note CM Note Notes: 08.19.2017 Case Management Note Notified from [facility] hat pt family has delayed meeting unitl Tues at 1300 in the pt home. Case Management notified RN. Case Management to follow. Date Signed: 08/19/2017 04:01 PM Electronically Signed By:Mitzy Holland RN
[2017-08-19] MEDS: PROPRANOLOL SR 60 MG CAP PO SCH (21:03)
[2017-08-19] MEDS: GABAPENTIN 100 MG CAP PO SCH (21:04)
[2017-08-19] MEDS: traZODone 100 MG TAB PO SCH (21:05)
[2017-08-20] MEDS: HYDROmorphONE/DILAUDID 2 MG TAB PO PRN ×7 (01:11→22:39)
[2017-08-20] MEDS: LORazepam 1 MG TAB PO PRN ×3 (05:51→20:19)
[2017-08-20] MEDS: LEVOTHYROXINE 50 MCG TAB PO SCH (05:52)
[2017-08-20] MEDS: HEPARIN 5,000 UNIT/0.5 ML SYR SC SCH ×3 (05:52→22:40)
[2017-08-20] MEDS: PANTOPRAZOLE SODIUM 40 MG TAB PO SCH (09:00)
[2017-08-20] MEDS: POLYETHYLENE GLYCOL 3350 17 GM PKT PO SCH (09:00)
[2017-08-20] MEDS: FLUoxetine 20 MG CAP PO SCH (09:00)
[2017-08-20] MEDS: SENNOSIDES/DOCUSATE SODIUM TAB PO SCH ×2 (09:00→20:19)
[2017-08-20] MEDS: HYDROmorphONE/DILAUDID 2 MG/ML INJ IVP PRN ×3 (12:11→21:23)
[2017-08-20] MEDS: CARISOPRODOL 350 MG TAB PO PRN ×2 (14:13→19:56)
--- NOTE | 2017-08-20 14:29 | HOSPPROG ---
Hospitalist Progress Note Assessment/Plan: #Acute on chronic abdominal pain: due to constipation, advancing cancer -better control with Fentanyl patch. Drop dilaudid to 2mg since oversedated #UTI: IV Ceftriaxone #Metastatic ovarian cancer -not on chemo. Enlarged liver masses, mesenteric implants -plan for Hospice evaluation outpatient #Leukocytosis: resolved. No abscess seen on CT. Afebrile #Constipation: having BMs #Depression: increased to 60mg daily #Hypothyroidism: LT4 #Anxiety: PRN ativan #Diet: as tolerated #DVT ppx: SQH #Disp: requires inpatient admission for uncontrolled pain. Hope to DC tomorrow if pain controlled Time spent on visit: 45 min counseling patient and friend on pain, UTI and DC plan. Hope to DC in next 1-2d ays Subjective: urinary frequency and urgency. pain meds making "too sleepy" Objective: Vital Signs Temp Pulse Resp BP Pulse Ox 37.1 C 73 15 157/88 H 91 L 08/20/17 08:00 08/20/17 08:00 08/20/17 08:00 08/20/17 09:00 08/20/17 08:00 08/19/17 08/20/17 08/21/17 05:59 05:59 05:59 Intake Total 2301 3237 Output Total 900 1100 Balance 1401 2137 - Physical Exam Constitutional: uncomfortable (tearful) Eyes: PERRL Ears, Nose, Mouth, Throat: moist mucous membranes Cardiovascular: regular rate and rhythym, no murmur, rub, or gallop Respiratory: no respiratory distress, no rales or rhonchi Gastrointestinal: normoactive bowel sounds, tenderness (less lower quadrant TTP today) Genitourinary: no bladder fullness Skin: warm Musculoskeletal: full muscle strength Neurologic: AAOx3 Psychiatric: anxious, flat affect ICD10 Worksheet Patient Problems: Problems Problem Status Onset Abdominal pain Acute Ovarian cancer Acute
[2017-08-20] MEDS ORDERED: HYDROmorphONE/DILAUDID 2 MG/ML INJ IVP PRN (20:18)
[2017-08-20] MEDS: GABAPENTIN 100 MG CAP PO SCH (20:19)
[2017-08-20] MEDS: traZODone 100 MG TAB PO SCH (22:40)
[2017-08-20] MEDS: PROPRANOLOL SR 60 MG CAP PO SCH (22:40)
[2017-08-21] MEDS: HYDROmorphONE/DILAUDID 2 MG TAB PO PRN ×7 (02:20→21:51)
[2017-08-21] MEDS: NS 1,000 ML IV SCH (02:21)
[2017-08-21] MEDS: LORazepam 1 MG TAB PO PRN ×5 (02:21→21:50)
[2017-08-21] MEDS: LEVOTHYROXINE 50 MCG TAB PO SCH (06:23)
[2017-08-21] MEDS: HEPARIN 5,000 UNIT/0.5 ML SYR SC SCH ×3 (06:23→20:44)
[2017-08-21] MEDS: PANTOPRAZOLE SODIUM 40 MG TAB PO SCH (09:07)
[2017-08-21] MEDS: POLYETHYLENE GLYCOL 3350 17 GM PKT PO SCH (10:06)
[2017-08-21] MEDS: FLUoxetine 20 MG CAP PO SCH (10:06)
[2017-08-21] MEDS: SENNOSIDES/DOCUSATE SODIUM TAB PO SCH ×2 (10:07→20:43)
--- NOTE | 2017-08-21 12:05 | ASMTCMCOM ---
CM Note CM Note Notes: Chart reviewed. Met with patient and her friend, Per patient her medical needs can be discussed with her friends. Her friend Esmer is her POA, she presents a copy and I have made a copy for the chart. Conversation held with patient and three of her female friends. It is fraught with high emotion and uncertainty. The patient is very anxious and feels out of control. She has reservations about going to her mother's home where she has apparently been staying. She expresses deep sadness over leaving her granddaughter Due to the complexities involved with her care, I have suggested that hospice be involved as early as today to assist everyone in having a clear picture into what her disposition will look like. [facility] to see patient and 6 pm tonight. Her brother Gopal is aware, but he has no legal authorization regarding patients medical care, CM to follow. Date Signed: 08/21/2017 12:04 PM Electronically Signed By:Jennifer Schaefer RN
--- NOTE | 2017-08-21 12:14 | HOSPPROG ---
Hospitalist Progress Note Assessment/Plan: #Acute on chronic abdominal pain: due to constipation, advancing cancer -better control with Fentanyl patch 25mcg. Can increase tomorrow if needed. Back at 4mg dilaudid #UTI: IV Ceftriaxone. Day 2/3 #Metastatic ovarian cancer -not on chemo. Enlarged liver masses, mesenteric implants -plan for Hospice evaluation this evening #Leukocytosis: resolved. No abscess seen on CT. Afebrile #Constipation: having BMs #Depression: increased to Prozac 60mg daily #Hypothyroidism: LT4 #Anxiety: PRN ativan #Diet: as tolerated #DVT ppx: SQH #Disp: requires inpatient admission for uncontrolled pain. Hope to DC tomorrow if pain controlled Subjective: passing gas. Lower abd pain. still having urinary frequency Objective: Vital Signs Temp Pulse Resp BP Pulse Ox 36.7 C 73 16 151/104 H 90 L 08/21/17 11:56 08/21/17 11:56 08/21/17 11:56 08/21/17 11:56 08/21/17 11:56 08/20/17 08/21/17 08/22/17 05:59 05:59 05:59 Intake Total 3237 300 2994 Output Total 1100 250 Balance 2137 300 2744 - Time Spent With Patient Time Spent with Patient: greater than 35 minutes Time Spent with Patient: Greater than 35 minutes spent on this patients care, greater than 50% of time spent counseling, educating, and coordinating care regarding the above mentioned plan. - Physical Exam Constitutional: no apparent distress, obese Eyes: PERRL Ears, Nose, Mouth, Throat: moist mucous membranes Cardiovascular: regular rate and rhythym Respiratory: no respiratory distress Gastrointestinal: normoactive bowel sounds Genitourinary: other Skin: warm Musculoskeletal: full muscle strength Neurologic: AAOx3, CN II-XII Intact Psychiatric: depressed, flat affect ICD10 Worksheet Patient Problems: Problems Problem Status Onset Abdominal pain Acute Ovarian cancer Acute
[2017-08-21] MEDS: CARISOPRODOL 350 MG TAB PO PRN ×2 (14:08→22:48)
[2017-08-21] MEDS: HYDROmorphONE/DILAUDID 2 MG/ML INJ IVP PRN (20:43)
[2017-08-21] MEDS: GABAPENTIN 100 MG CAP PO SCH (20:43)
[2017-08-21] MEDS: HYOSCYAMINE SULFATE 0.125 MG TAB PO PRN (21:51)
[2017-08-21] MEDS: PROPRANOLOL SR 60 MG CAP PO SCH (22:42)
[2017-08-21] MEDS: traZODone 100 MG TAB PO SCH (22:42)
[2017-08-22 00:28] VITALS: O2SAT 91
[2017-08-22] MEDS: HYDROmorphONE/DILAUDID 2 MG TAB PO PRN ×5 (01:07→17:47)
[2017-08-22] MEDS: HEPARIN 5,000 UNIT/0.5 ML SYR SC SCH ×2 (05:03→15:30)
[2017-08-22] MEDS: HYOSCYAMINE SULFATE 0.125 MG TAB PO PRN (05:05)
[2017-08-22] MEDS: LORazepam 1 MG TAB PO PRN ×4 (05:05→17:48)
[2017-08-22] MEDS: LEVOTHYROXINE 50 MCG TAB PO SCH (05:05)
[2017-08-22] MEDS ORDERED: PHENAZOPYRIDINE HCL 200 MG TAB PO SCH (09:00)
[2017-08-22] MEDS ORDERED: fentaNYL 12 MCG PATCH TD SCH ×2 (10:00→12:00)
[2017-08-22 10:34] VITALS: BP 134/80; PULSE 67; RESP 18; TEMP 98.9
[2017-08-22] MEDS: PANTOPRAZOLE SODIUM 40 MG TAB PO SCH (10:50)
[2017-08-22] MEDS: SENNOSIDES/DOCUSATE SODIUM TAB PO SCH (10:51)
[2017-08-22] MEDS: FLUoxetine 20 MG CAP PO SCH (10:51)
[2017-08-22] MEDS: fentaNYL 25 MCG PATCH TD SCH (10:52)
[2017-08-22] MEDS: POLYETHYLENE GLYCOL 3350 17 GM PKT PO SCH (10:54)
[2017-08-22] MEDS ORDERED: fentaNYL 25 MCG PATCH TD SCH ×2 (11:30→12:00)
--- NOTE | 2017-08-22 15:43 | ASMTLACE ---
LACE Length of stay for Answers: 4-6 days current admission Acuity / Level of Answers: Yes Care: Did the patient have an inpatient admission? Comorbidities - select Answers: Any tumor (including all that apply lymphoma or leukemia) Opioid dependence / Chronic pain Other Notes: Hx of Ovarian cancer, H [place] # of Emergency department Answers: 1-2 visits in the last 6 months Social determinants Answers: Mental health diagnosis (anxiety, depression, pers onality disorders, etc.) Score: 18 Date Signed: 08/22/2017 03:42 PM Electronically Signed By:Jennifer Schaefer RN
--- NOTE | 2017-08-22 15:49 | ASMTCMCOM ---
CM Note CM Note Notes: Patient had another meeting with [facility] today. She has been accepted to inpatient hospice after lengthy meeting with building energy retrofit technician and Tax Form Preparer. In attendance was her brother Gopal, Her MDPOA Esmer and her friend Thiago. She will transfer to the [facility] at 6 pm via ambulance arranged by hospice. I will fax final orders, discharge summary and medication sheet when finalized. CM available should any other needs arise. Date Signed: 08/22/2017 03:48 PM Electronically Signed By:Jennifer Schaefer RN
--- NOTE | 2017-08-22 15:56 | PDDCSUM ---
Discharge Summary Discharge Summary: DISCHARGE SUMMARY FOLLOW-UP ITEMS: Titrate pain medications as needed DATE OF ADMISSION: 08/16/2017 DATE OF DISCHARGE: 08/22/2017 DISCHARGE DIAGNOSES: 1. Acute on chronic abdominal pain 2. Continuous opiate and benzodiazepine dependency 3. Possible urinary tract infection 4. Metastatic ovarian cancer 5. Chronic constipation 6. Depression and anxiety CONSULTATIONS: Palliative care, oncology PROCEDURES / IMAGING: Abdominal CT demonstrating inflammation secondary to tumor invasion of the sigmoid colon by large pelvic mass without abscess or free fluid but progression of metastatic disease evidenced by increasing size in the liver metastases, mesenteric implants and central pelvic mass, new well-positioned left ureteral stent decompressing the left upper urinary tract without any perinephric hematoma but chronic partial obstruction and atrophy of the right kidney despite good positioning of the right ureteral stent CHIEF COMPLAINT: Acute abdominal pain SUBJECTIVE: Patient continues to experience significant anxiety and stress, her pain is currently well managed PHYSICAL EXAM ON DISCHARGE: Systolic blood pressure 130-160, heart rate 70, afebrile overnight, satting on room air, alert awake oriented x3, intermittently tearful, intermittently anxious, intermittently come LABS ON DISCHARGE: Urine culture with Staph HOSPITAL COURSE BY PROBLEM: 1. Acute on chronic abdominal pain. Because the patient's abdominal pain is most likely secondary to tumor invasion in the sigmoid colon as well as numerous mesenteric implants and given that the patient has failed multiple lines of chemotherapy, palliative care is the most appropriate treatment strategy. Consequently, the patient was initiated on a fentanyl patch and was up titrated to 37 mcg Q 72 hr, with breakthrough Dilaudid 2-4 mg as needed every 3 hr. The patient also experiences significant amount of anxiety and distress surrounding her pain management, and she has requested as needed Ativan 1-2 mg to be used flexibly throughout the day, I would suggest as needed every 2 hr, to anticipate patient needs. Of note, the patient has requested that even when she is visibly resting comfortably, that she be awakened and have her pain and anxiety reassessed on the p.r.n. Schedule, so that she is able to decide whether she feels pain or anti anxiety medications would be useful. 2. Continuous opiate and benzodiazepine dependency. Patient takes opiates and benzodiazepine on a scheduled basis at home, and please follow the above- mentioned pain management strategy in the short term and titrate as needed. 3. Possible urinary tract infection. Urine culture positive, Staph positive on urine culture, leukocytosis, treated with 3 days of IV ceftriaxone for uncomplicated urinary tract infection. Of note, the patient's left ureteral stent appears to be open and communicating well, her right ureteral stent does not appear to be properly functioning, but given her palliative management strategies, this did not warrant urologic consultation. 4. Chronic constipation. Patient received aggressive bowel regiment in order to accomplish bowel movements, and this should be continued to prevent constipation exacerbating her abdominal pain. 5. Metastatic ovarian cancer. Despite multiple lines of treatment, the patient' s disease has continued to progress. She was seen consultation by Oncology, and hospice was recommended. We recommend general inpatient hospice to obtain adequate pain management, and then reassess whether the patient can be managed with hospice at home. DISCHARGE MEDICATIONS: Please see official discharge medication reconciliation sheet in chart , Dilaudid 2-4 mg as needed every 3 hr, Ativan 1-2 mg as needed every 2 hr, fentanyl patch 37 mcg Q 72 hr, acyclovir ointment applied q.6 hours p.r.n., trazodone 100 mg at bedtime, Senokot S1 tab twice daily scheduled, propranolol sustained release 60 mg at bedtime scheduled, pantoprazole 40 mg daily scheduled , levothyroxine 50 mcg daily scheduled, Levsin 0.125 mg q.6 hours as needed, gabapentin 100 mg at bedtime, fluoxetine 60 mg daily scheduled, clonidine 0.1 mg twice daily scheduled, Soma 350 mg twice daily as needed, amlodipine 10 mg daily scheduled. DISCHARGE INSTRUCTIONS: Please titrate pain medications at general inpatient hospice. TIME SPENT: Greater than 30 minutes were spent on direct patient care, as well as discharge planning and preparation.
--- NOTE | 2017-08-22 16:00 | PDIAF ---
- Diagnosis Diagnosis: Metastatic Ovarian Cancer - Medication Management Discharge Medications: Medications to Continue on Transfer RX: Carisoprodol [Soma (*)] 350 mg PO BID PRN 12/05/14 [Last Taken 08/10/17] RX: traZODone [traZODONE 100MG (*)] 100 mg PO HS 12/05/14 [Last Taken 08/15/17] RX: amLODIPine BESYLATE [Norvasc 10 mg (*)] 10 mg PO DAILY #60 tab 12/08/14 [ Last Taken 08/16/17] RX: Pantoprazole Sodium [Protonix 40mg (*)] 40 mg PO DAILY 10/30/15 [Last Taken 08/16/17] RX: Propranolol Sr [Inderal LA 60mg (*)] 60 mg PO HS 10/30/15 [Last Taken ] RX: Levothyroxine [Synthroid 50 mcg (*)] 50 mcg PO DAILY06 #30 tab 11/06/15 [ Last Taken 08/10/17] RX: clonIDINE [Catapres (*)] 0.1 mg PO BID #60 tab 11/06/15 [Last Taken 21:00] RX: Acyclovir 5% [Zovirax 5% 30gm Oint (RX)] 1 alvaro TP Q6H PRN #15 gm 08/21/17 [ Last Taken Unknown] RX: Acetaminophen [Tylenol 325mg (*)] 650 mg PO Q4HRS PRN tab 08/22/17 [Last Taken Unknown] RX: FLUoxetine [Prozac 20 MG (*)] 60 mg PO DAILY cap 08/22/17 [Last Taken Unknown] RX: Gabapentin [Neurontin 100 MG (*)] 100 mg PO HS cap 08/22/17 [Last Taken Unknown] RX: HYDROmorphone HCL [Dilaudid 2 mg (*)] 2 - 4 mg PO Q3HRS PRN tab 08/22/17 [ Last Taken Unknown] RX: HYDROmorphone HCL [Dilaudid Inj 2 mg/ml (*)] 1 mg IVP Q4HRS PRN inj [Last Taken Unknown] RX: Hyoscyamine Sulfate [Levsin, Hyomax-Sl 0.125 mg (*)] 0.125 mg PO Q6HRS PRN tab 08/22/17 [Last Taken Unknown] RX: LORazepam [Ativan (*)] 1 - 2 mg PO Q2 PRN tab 08/22/17 [Last Taken Unknown] RX: Polyethylene Glycol 3350 [Miralax 17 gm (*)] 17 gm PO DAILY pkt 08/22/17 [ Last Taken Unknown] RX: Polyethylene Glycol 3350 [Miralax 17 gm (*)] 17 gm PO DAILY PRN pkt [Last Taken Unknown] RX: Sennosides/Docusate Sodium [Senokot-S] 1 tab PO BID tab 08/22/17 [Last Taken Unknown] RX: fentaNYL [Duragesic 12 MCG Patch (*)] 12 mcg TD Q72H patch 08/22/17 [Last Taken Unknown] RX: fentaNYL [Duragesic 25 MCG Patch (*)] 25 mcg TD Q72H patch 08/22/17 [Last Taken Unknown] Timers Inspector Antibiotics: NA Discharge Medications: Refer to the Discharge Home Medication list for PRN reason. PICC Care - Routine: N/A - Orders Services needed: Registered Nurse, Certified Acoustic Sensor Operator Isolation Type: None Oxygen: NA Diet Recommendation: no restrictions on diet [place]: Not applicable - Follow Up Care Current Providers and Referrals: Hayes Gage MD [Primary Care Provider] - As per Instructions
[2017-08-25] MEDS ORDERED: fentaNYL 25 MCG PATCH TD SCH (10:00)
== END 2017-08-22 18:28 | disposition hospice, home (50) | DRG 755 ==
LOC: F1N 08-17 02:11 → OBSVTOIN 08-17 21:00
PROVIDERS: ADMIT Family Medicine; ATTEND Family Medicine
DX: C56.1 Malignant neoplasm of right ovary (principal); C78.5 Secondary malignant neoplasm of large intestine and rectum; C78.7 Secondary malignant neoplasm of liver and intrahepatic bile duct; F11.20 Opioid dependence, uncomplicated; F19.20 Other psychoactive substance dependence, uncomplicated; N39.0 Urinary tract infection, site not specified; C56.2 Malignant neoplasm of left ovary; E03.9 Hypothyroidism, unspecified; G47.00 Insomnia, unspecified; F41.9 Anxiety disorder, unspecified; F32.9 Major depressive disorder, single episode, unspecified; I10 Essential (primary) hypertension; G89.29 Other chronic pain; B95.8 Unspecified staphylococcus as the cause of diseases classified elsewhere; K59.09 Other constipation; Z87.891 Personal history of nicotine dependence
CPT/HCPCS: 96374; J0696; J1170; J1644; J2060; J2405; J3010